=== PATIENT | female | born 1950 | race Caucasian/White ===

== ENCOUNTER 2021-02-15 11:02 | Outpatient (RCR) | payer MEDICARE, OTHER | END 2021-03-12 | disposition home or self-care (01) | PROVIDERS: ATTEND Orthopaedic Surgery | DX: S83.242A Other tear of medial meniscus, current injury, left knee, initial encounter (principal); Z98.890 Other specified postprocedural states; Z96.652 Presence of left artificial knee joint; X58.XXXA Exposure to other specified factors, initial encounter ==